=== PATIENT | female | born 1960 | race African-American/Black ===

== ENCOUNTER 2022-06-20 23:20 | Emergency (ER) | payer MEDICARE, MEDICAID ==
[2022-06-20] MEDS ORDERED: Sodium Chloride 0.9% 10 ML Syringe FLUSH PRN (23:34)
[2022-06-20] MEDS ORDERED: Sodium Chloride 0.9% 2.5 ML Syringe FLUSH PRN (23:34)
[2022-06-20] MEDS ORDERED: Famotidine 20 MG/2 ML SDV IVPUSH ONE (23:51)
[2022-06-20] MEDS ORDERED: methylPREDNISolone Sodium Succinate 125 MG/2 ML SDV IVPUSH ONE (23:51)
[2022-06-20] MEDS ORDERED: diphenhydrAMINE 50 MG/ML SDV IVPUSH ONE (23:51)
[2022-06-21 00:29] LABS: BLOOD UREA NITROGEN,BUN 12 mg/dL (7.0-18.0); CARBON DIOXIDE,CO2 29.4 mmol/L (21.0-32.0); CHLORIDE,CL 100 mmol/L (98-107); GLUCOSE RANDOM 203 mg/dL (74-106); POTASSIUM,K 3.3 mmol/L (3.5-5.1); SODIUM,NA 139 mmol/L (136-145)
[2022-06-21 00:30] LABS: ESTIMATED GFR 46 mL/min (>60)
[2022-06-21] MEDS ORDERED: Ondansetron 4 MG/2 ML SDV IVPUSH ONE (00:51)
[2022-06-21] MEDS ORDERED: fentaNYL 50 MCG/ML SDV IVPUSH ONE (00:51)
== END 2022-06-21 05:14 | disposition home or self-care (01) ==
LOC: MW.ED 23:20
DX: R07.89 Other chest pain (principal); I11.0 Hypertensive heart disease with heart failure; I50.9 Heart failure, unspecified; I25.10 Atherosclerotic heart disease of native coronary artery without angina pectoris; Z79.82 Long term (current) use of aspirin; Z91.041 Radiographic dye allergy status
CPT/HCPCS: 36415; 71045; 71045-26; 71275; 71275-26; 80053; 82947; 83880; 84484; 85025; 85379; 93005; 93010; 96374; 96375; 99284; 99285-25; J1200; J2405; J2930; J3010; J3490

== ENCOUNTER 2022-06-21 08:08 | Emergency (ER) | payer MEDICARE, MEDICAID ==
[2022-06-21] MEDS ORDERED: Sodium Chloride 0.9% 2.5 ML Syringe FLUSH PRN (08:57)
[2022-06-21] MEDS ORDERED: Sodium Chloride 0.9% 10 ML Syringe FLUSH PRN (08:57)
[2022-06-21 10:22] LABS: CARBON DIOXIDE,CO2 27.2 mmol/L (21.0-32.0); POTASSIUM,K 5.1 mmol/L (3.5-5.1)
[2022-06-21] MEDS ORDERED: Insulin Regular, Human 100 Units/ML 10 ML Vial IVPUSH ONE ×4 (10:57→15:44)
[2022-06-21] MEDS ORDERED: Glucagon,Human Recombinant 1 MG Vial IM PRN ×4 (10:57→15:44)
[2022-06-21] MEDS ORDERED: 50% Dextrose in Water 50 ML Syringe IVPUSH PRN ×4 (10:57→15:44)
[2022-06-21] MEDS ORDERED: Acetaminophen 325 MG Tab PO ONE (15:10)
== END 2022-06-21 17:25 | disposition home or self-care (01) ==
LOC: MW.ED 08:08
DX: R73.9 Hyperglycemia, unspecified (principal); I25.10 Atherosclerotic heart disease of native coronary artery without angina pectoris; Z91.041 Radiographic dye allergy status; Z79.82 Long term (current) use of aspirin
CPT/HCPCS: 36415; 80053; 82009; 82803; 82947; 83880; 84484; 93005; 99284; 99285; A9270-GY; J1815-GY; J3490